=== PATIENT | male | born 1950 | race Caucasian/White ===

== ENCOUNTER 2016-11-09 09:18 | Emergency (ER) | payer OTHER, BC, MEDICARE ==
[2016-11-09] MEDS ORDERED: Sodium Chloride 0.9% 10 ML Syringe FLUSH PRN (09:28)
[2016-11-09] MEDS ORDERED: methylPREDNISolone Sodium Succinate 125 MG/2 ML SDV IV ONE (09:29)
[2016-11-09] MEDS ORDERED: diphenhydrAMINE 50 MG/ML SDV IVPUSH ONE (09:29)
[2016-11-09] MEDS ORDERED: Famotidine 20 MG/2 ML SDV IVPUSH ONE (09:30)
[2016-11-09 10:20] VITALS: BP 151/80
--- NOTE | 2016-11-10 08:22 | ER ---
Date of Service: 11/09/2016 SUBJECTIVE: Ralph presents to the emergency room with complaints of a bee sting. The patient states that the bee sting happened just prior to coming to the emergency room. 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 He does have an EpiPen, which he administered to his left thigh. He states that he has noticed swelling to the area of the insect bite, but denies any throat tightness or respiratory distress. PAST MEDICAL HISTORY: 1. Tobacco abuse disorder. 2. Anaphylaxis. OBJECTIVE: General: This is a 66-year-old male patient in no acute distress. Vital Signs: Blood pressure initially was 187/89, it was rechecked, and it was 151/80. Heart rate is 74, respiratory rate is 14, and O2 saturations 96%. Skin: Warm, pink, and dry. Respiratory: No wheezing. Heart: Regular rate and rhythm. Abdomen: Soft and nontender. There is no hepatosplenomegaly or masses noted. Musculoskeletal: The patient does have some urticaria to the index and middle fingers of his left hand, where he was stung. No evidence of any systemic urticaria or swelling. EMERGENCY ROOM COURSE: IV access was established. He was given Solu-Medrol 125 mg IV, Benadryl 50 mg IV, as well as 20 mg of Pepcid IV. He was observed for a period of time and was not experiencing any respiratory distress or other worrisome signs or symptoms. The patient remained stable in my care in the emergency room. ASSESSMENT: Bee sting with history of anaphylaxis. PLAN: The patient was started on prednisone 40 mg once daily for 5 days. I would like him to follow up with his primary care provider in the next 5 to 7 days. He was given a prescription for an epinephrine autoinjector. He was advised to take Benadryl 50 mg every 4 to 6 hours as needed for hives and irritation. He is to return to the emergency room, obviously, if he develops any shortness of breath, throat tightness, or other worrisome signs or symptoms. All questions were answered. ADRYK: 11/10/2016 07:08:32 MODL: 11/10/2016 08:12:28 /[id number]
--- NOTE | 2016-11-15 04:12 | ER ---
Date of Service: 11/09/2016 ADDENDUM: REVIEW OF SYSTEMS: General: Denies any fever or chills. HEENT: No sore throat, rhinorrhea, or congestion. No throat tightness. Respiratory: No shortness of breath. Cardiac: Denies any substernal chest pain. Gastrointestinal: No nausea, vomiting, or diarrhea. No melena, hematochezia, or hematemesis. Neurologic: Denies any fainting, blackouts, or lightheadedness. MWK: 11/15/2016 03:13:18 MODL: 11/15/2016 04:03:57 /[id number]
== END 2016-11-09 10:28 | disposition home or self-care (01) ==
LOC: VM.ED 09:18
DX: T63.441A Toxic effect of venom of bees, accidental (unintentional), initial encounter (principal); L50.8 Other urticaria
CPT/HCPCS: 96374; 96375; 99283; J1200; J2930; S0028

== ENCOUNTER 2022-11-07 19:29 | Emergency (ER) | payer MEDICARE ==
[2022-11-07] MEDS ORDERED: Albuterol/Ipratropium 3.0-0.5 MG/3 ML Neb Soln NEB ONE (19:35)
[2022-11-07] MEDS ORDERED: EPINEPHrine 1 MG/1 ML Amp IM ONE ×2 (19:36→19:45)
[2022-11-07] MEDS ORDERED: diphenhydrAMINE 50 MG/ML SDV IVPUSH ONE (19:37)
[2022-11-07] MEDS ORDERED: Famotidine 20 MG/2 ML SDV IVPUSH ONE (19:37)
[2022-11-07] MEDS ORDERED: methylPREDNISolone Sodium Succinate 125 MG/2 ML SDV IV ONE (19:37)
[2022-11-07] MEDS ORDERED: Sodium Chloride 0.9% 10 ML Syringe FLUSH PRN (19:38)
[2022-11-07] MEDS ORDERED: Sodium Chloride 0.9% 1,000 ML IV SCH (19:45)
[2022-11-07 19:59] LABS: BASOPHILS PERCENT AUTO 0.2 % (0.2-1.2); EOSINOPHILS ABSOLUTE AUTO 0.1 x10^3/uL (0.0-0.5); EOSINOPHILS PERCENT AUTO 0.9 % (0.0-4.0); HEMATOCRIT 46.9 % (40.0-52.0); IMMATURE GRAN ABSOLUTE AUTO 0.01 x10^3/uL (0.00-0.07); LYMPHOCYTES PERCENT AUTO 62.1 % (25.0-50.0); MEAN CORPUSCULAR HEMOGLOBIN 33.7 pg (26.0-32.0); MEAN CORPUSCULAR HGB CONC 36.2 g/dL (32.0-36.0); MEAN CORPUSCULAR VOLUME 93.1 fL (78.0-93.0); MONOCYTES ABSOLUTE AUTO 0.4 x10^3/uL (0.0-0.8); MONOCYTES PERCENT AUTO 6.3 % (2.0-11.0); NEUTROPHILS PERCENT AUTO 30.3 % (50.0-80.0); PLATELET COUNT,PLT 211 x10^3/uL (130-400); RED BLOOD CELL COUNT 5.04 x10^6/uL (4.5-6.0); WHITE BLOOD CELL COUNT,WBC 6.5 x10^3/uL (4.0-10.0)
[2022-11-07] MEDS ORDERED: Ondansetron 4 MG/2 ML SDV IVPUSH ONE (20:11)
[2022-11-07 20:18] LABS: PROTHROMBIN TIME 10.7 SEC (9.5-12.2); PTT,PARTIAL THROMBOPLSTIN TIME 25.1 SEC (23.6-33.6)
[2022-11-07 20:25] LABS: A/G RATIO 0.94; ALANINE AMINOTRANSFERASE,ALT 19 U/L (16-63); ALBUMIN 3.3 g/dL (3.4-5.0); ALKALINE PHOSPHATASE 93 U/L (46-116); ASPARTATE AMNIOTRANSFERASE,AST 27 U/L (15-37); BILIRUBIN TOTAL 0.2 mg/dL (0.2-1.0); BLOOD UREA NITROGEN,BUN 4 mg/dL (7-18); CALCIUM 8.3 mg/dL (8.5-10.1); CARBON DIOXIDE,CO2 23 mmol/L (21-32); CHLORIDE,CL 96 mmol/L (98-107); CREATININE 0.7 mg/dL (0.70-1.30); GLUCOSE RANDOM 102 mg/dL (70-99); MAGNESIUM 1.8 mg/dL (1.8-2.4); POTASSIUM,K 3.4 mmol/L (3.5-5.1); PRO B-TYPE NATRIUR PEPT,BNPPRO 112 pg/mL (<=125); PROTEIN TOTAL,TP 6.8 g/dL (6.4-8.2); SODIUM,NA 133 mmol/L (136-145)
[2022-11-07 20:26] LABS: ANION GAP 17.4 mmol/L (5-15); ESTIMATED GFR 99 mL/min (>=60)
[2022-11-07 21:59] VITALS: PULSE 82
[2022-11-07 22:02] VITALS: BP 130/57
== END 2022-11-07 20:57 | disposition home or self-care (01) ==
LOC: VM.ED 19:29
DX: T63.441A Toxic effect of venom of bees, accidental (unintentional), initial encounter (principal); Z91.030 Bee allergy status
CPT/HCPCS: 36415; 71045; 80053; 83735; 83880; 84484; 85025; 85610; 85730; 93005; 93010; 94640; 96361; 96372; 96374; 96375; 99284; 99285; J0171; J1200; J2405; J2930; J3490; J7030; J7620-GY